=== PATIENT | male | born 1975 | race Caucasian/White ===

== ENCOUNTER 2019-05-06 12:00 | Emergency (ER) | payer MEDICAID, SELFPAY ==
[~2019-05-06] VITALS: Ht 182.9 cm; Wt 102.5 kg
[2019-05-06 12:22] VITALS: BP 154/94
--- NOTE | 2019-05-06 13:39 | NUR ---
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
--- NOTE | 2019-05-06 13:43 | NUR ---
PT HERE WITH C/O RIGHT EYE PAIN X 3 DAYS, STATES NO TRAUMA. PT STATES BLURRED VISION AND FOREIGN BODY SENSATION. PT AAO X 4, NAD, ROOM AIR, CALL LIGHT WITHIN REACH. PT IN EYE ROOM. FAMILY AT BEDSIDE.
[2019-05-06] MEDS ORDERED: DOXE100C PO (13:52)
[2019-05-06] MEDS ORDERED: LAMO100T5 PO (13:52)
[2019-05-06] MEDS ORDERED: FLUO20CA19 PO (13:52)
--- NOTE | 2019-05-06 15:25 | NUR ---
Patient/Caregiver given discharge instructions and they have confirmed that they understand the instructions. Patient ambulatory with steady gait.
== END 2019-05-06 15:26 | disposition home or self-care (01) ==
LOC: ED 14:00
DX: H57.11 Ocular pain, right eye (principal)
CPT/HCPCS: 99282